=== PATIENT | female | born 1980 | race Caucasian/White ===

== ENCOUNTER 2024-02-01 08:15 | Day surgery (SDC) | payer OTHER ==
--- NOTE | 2024-01-31 13:26 | HP ---
HISTORY AND PHYSICAL DATE OF ANTICIPATED SURGERY: 02/01/2024. HISTORY OF PRESENT ILLNESS: Suzy Smith is a 43-year-old patient seen with progressive right knee pain. We discussed options for treatment. She elected to proceed with arthroscopy. Consent obtained. PAST MEDICAL HISTORY: Hypothyroidism. SURGICAL HISTORY: section, hand surgery. DAILY MEDICATIONS: 1. Synthroid. 2. Tylenol. 3. Motrin. ALLERGIES: None. SOCIAL HISTORY: She denies tobacco use. PHYSICAL EVALUATION OF RIGHT KNEE: Range of motion is 0 to 120 degrees. Mild effusion. She has tenderness along the lateral joint line with positive lateral Sophie's, a +1 Olivia, good endpoint, otherwise ligaments are stable. Good rotation of her hip without pain. Distal neurovascular exam intact. RADIOGRAPHS: Right knee radiographs revealed no abnormality. MRI right knee revealed a complex lateral meniscal tear, large effusion, and synovitis. IMPRESSION: 1. Internal derangement of right knee, lateral meniscal tear. 2. Right knee synovitis. PLAN: Right knee arthroscopy with partial lateral meniscectomy and partial synovectomy, and debridement. MMODL / IJN: [id number] /
[2024-02-01 08:47] VITALS: RESP 16
[2024-02-01] MEDS ORDERED: ONDANSETRON 4 MG/2 ML VIAL ONE (08:47)
[2024-02-01] MEDS: LACTATED RINGERS 1,000 ML IV ONE (08:54)
[2024-02-01] MEDS: DEXAMETHASONE SOD PHOSPHATE 4 MG/ML 1 ML VIAL IVP ONE (08:55)
[2024-02-01] MEDS: ONDANSETRON 4 MG/2 ML VIAL IVP ONE (08:55)
[2024-02-01] MEDS ORDERED: PROPOFOL 10 MG/ML 20 ML VIAL IV ONE (09:19)
[2024-02-01] MEDS ORDERED: LIDOCAINE 1% INJ 10MG/ML (20 ML MDV) ONE (09:19)
[2024-02-01] MEDS ORDERED: PHENYLEPHRINE 10 MG/ML VIAL ONE (09:19)
[2024-02-01] MEDS ORDERED: fentaNYL (PF) 50 MCG/ML 2 ML AMP ONE (09:19)
[2024-02-01] MEDS ORDERED: MIDAZOLAM 2 MG/2 ML VIAL ONE (09:19)
[2024-02-01] MEDS: BUPIVACAINE (PF) 0.25% 30 ML VIAL INTRAARTIC ONE (09:21)
--- NOTE | 2024-02-01 10:21 | P.OP ---
Date of Procedure: 02/01/24 Preoperative Diagnosis: Internal derangement right knee Postoperative Diagnosis: 1. Tear medial and lateral meniscus right knee 2. Grade IV chondromalacia medial femoral condyle right knee 3. Reactive synovitis medial, lateral and suprapatellar compartments right knee Procedure(s) Performed: 1. Arthroscopic partial medial and lateral meniscectomy right knee 2. Arthroscopic microfracture medial femoral condyle right knee 3. Arthroscopic partial synovectomy medial, lateral and suprapatellar compartments right knee 4. Arthroscopic chondroplasty medial femoral condyle right knee Anesthesia: DIANEA, local Surgeon: Juan Mcfadden Estimated Blood Loss (ml): 8 Pathology: none sent Condition: stable Disposition: PACU Indications for Procedure: 43-year-old patient seen with progressive right knee pain. After having treatment options discussed, she elected to proceed with arthroscopy. Operative Findings: See description of procedure Description of Procedure: Patient was taken to the operative suite. Patient underwent a general anesthetic by the department of anesthesia. Patient was given preoperative antibiotics. The right lower extremity was placed in a well-padded arthroscopic leg weir. The right leg was prepped and draped in the normal sterile orthopedic fashion. A lateral parapatellar and suprapatellar incision was made. Trochars were inserted. Arthroscopy was initiated. Suprapatellar pouch re vealed diffuse thick reactive synovitis. The patellofemoral joint appeared to articulate congruently. There was grade I chondromalacia without tears. The scope was guided into the medial gutter. No loose bodies or plica were identified. The scope was then guided into the medial compartment. A medial parapatellar incision was made. Trocar inserted followed by probe. Was a complex tear involving the posterior horn of the medial meniscus. There were grade II/III chondromalacia changes along the medial femoral condyle with some osteochondral flap tears. There was thick reactive synovitis anteriorly. I performed a partial medial meniscectomy getting down to stable meniscal tissue. I performed a chondroplasty of the medial femoral condyle getting down to stable osteochondral tissue. I performed a partial synovectomy decompressing the thick reactive synovitis anteriorly. I did note an area of exposed bone along the anterior aspect of the medial femoral condyle measuring less than 1 cm. There was grade IV chondromalacia there. I introduced a microfracture awl and I performed a microfracture to the area of exposed bone medial femoral condyle penetrating the bone with resultant bleeding at the microfracture site. The residual meniscus was probed and was found to be stable. The residual osteochondral surface was stable. There was good decompression of the synovitis. Scope and probe were then guided into the intercondylar notch. Cruciates were identified, probed and found to be stable. The scope and probe were then guided into lateral compartment. There was a complex tear involving the mid body and posterior horns of the lateral meniscus. There were grade II chondromalacia changes involving the lateral femoral condyle without tears. There were grade 2/3 chondral changes on the very posterior aspect of the lateral tibial plateau without tears. There was thick reactive synovitis anteriorly. I performed a partial lateral meniscectomy getting down to stable meniscal tissue. I performed a partial synovectomy decompressing the reactive synovitis anteriorly. The residual meniscus was probed and was found to be stable. There was good decompression of the synovitis. The scope was in guided back into the suprapatellar compartment. I introduced a motorized shaver into the suprapatellar compartment. I debrided some piecemeal fragments of meniscus I encountered. I performed a partial synovectomy. The shaver when out was now removed. There was good decompression of the synovitis. I took 1 more look around the entire knee, no residual debris. Instruments were now removed from the joint. The joint was infiltrated with .25% Marcaine. Steri-Strips were applied to the portal sites. Sterile dressings were applied. The patient was placed into a RIAN hose. No tourniquet was utilized. The patient was awakened, transferred to a bed and taken to recovery stable satisfactory condition.
[2024-02-01 10:51] VITALS: TEMP 97.1
[2024-02-01] MEDS: HYDROcodone/APAP 5-325MG 1 EACH TAB ONE (11:11)
[2024-02-01 11:34] VITALS: BP 124/75; PULSE 78
== END 2024-02-01 11:59 | disposition home or self-care (01) ==
LOC: OR 08:15
PROVIDERS: ATTEND Orthopaedic Surgery
DX: S83.281A Other tear of lateral meniscus, current injury, right knee, initial encounter (principal); S83.241A Other tear of medial meniscus, current injury, right knee, initial encounter; M94.261 Chondromalacia, right knee; M65.851 Other synovitis and tenosynovitis, right thigh; E03.9 Hypothyroidism, unspecified; Z79.890 Hormone replacement therapy; Z79.899 Other long term (current) drug therapy; Z98.891 History of uterine scar from previous surgery; X58.XXXA Exposure to other specified factors, initial encounter
CPT/HCPCS: 81025; 29880; 29879; J2250; J1100; J0690; J2405; J2001; J3010; J2704; J2371; J0665